=== PATIENT | female | born 1955 | race Caucasian/White ===

== ENCOUNTER 2019-01-18 06:55 | Day surgery (SDC) | payer BC, OTHER ==
[~2019-01-18 06:55] MED LIST: Lactated Ringers 1,000 ML IV SCH; Lidocaine 1%/Sod Bicarbonate in NS 8.4% 1 ML Syringe IDERM PRN; Scopolamine 1.5 MG Transdermal Patch TRDERM PRN; Sodium Chloride 0.9% 10 ML Syringe FLUSH PRN
[2019-01-18] MEDS ORDERED: Lidocaine 1% 2 ML ONE ×2 (07:09)
[2019-01-18] MEDS ORDERED: Propofol 200 MG/20 ML SDV ONE ×3 (07:09→08:32)
--- NOTE | 2019-01-18 07:16 | PCM.HP ---
H&P History of Present Illness - General Date of Service: 01/18/19 Admit Problem/Dx: Family hx of colon cancer, colonoscopy Source of Information: Patient - History of Present Illness Initial Comments - Free Text/Narative: The patient is [id number] by Dr. Lake for colonoscopy due to family hx of colon cancer The patient presents today for the above noted concern. She denies any major changes to medical history since last visit. She was initially scheduled for EGD/colonoscopy, due to reflux and inability to wean PPI. She DOES NOT want the EGD today. She did complete colonoscopy prep. Stools were clear. Did note some bleeding/blood in stool with diarrhea last night induced by prep felt to be due to hemorrhoids. The patientrareconstipation. Reports normally has some diarrhea. NO: melena. Has notedblood on tissue paper/hemorrhoids. [id number] daily. Bowel movements easy to pass. No unintentional weight loss. No change in stool caliber. No abdominal pain today. Denies history of ulcerative colitis or Crohn 's disease. Denies any family history of inflammatory bowel disease. Family hx of colon cancer. Last colonoscopy was 2013, hyperplastic polyps were removed Hasreflux, heartburn is controlled with Nexium. Has been on for years. Cannot wean. Drinks up to 6 cups of coffee at times. Rare NSAIDs. NO: nausea , vomiting, or dysphagia.. She reports she had aspiration in the past and was found to have reflux. CT scan done in 2010 showed a small hiatal hernia.Last EGD wasnever. 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 She can be hypersensitive to her skin surface being touched and can have wide spead pain. 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 She does feel the Cymbalta helps this. - Related Data Allergies/Adverse Reactions: Allergies Allergy/AdvReac Type Severity Reaction Status Date / Time amoxicillin trihydrate Allergy Hives Verified 01/17/19 13:36 [From Augmentin] potassium clavulanate Allergy Hives Verified 01/17/19 13:36 [From Augmentin] Home Medications: Home Meds Calcium Carbonate [Calcium] 600 mg PO DAILY 01/17/19 [History] Cholecalciferol (Vitamin D3) [Vitamin D3] 2,000 unit PO DAILY 01/17/19 [History] DULoxetine [Cymbalta] 30 mg PO DAILY 01/17/19 [History] Esomeprazole Magnesium [Nexium] 40 mg PO DAILY 01/17/19 [History] Ibuprofen 600 mg PO ASDIRECTED PRN 01/17/19 [History] Losartan [Cozaar] 50 mg PO DAILY 01/17/19 [History] Rosuvastatin [Crestor] 10 mg PO DAILY 01/17/19 [History] Past Medical History HEENT History: Reports: None Cardiovascular History: Reports: High Cholesterol, Hypertension, Other (See Below) Other Cardiovascular History: Varicose veins Respiratory History: Reports: None Gastrointestinal History: Reports: GERD Genitourinary History: Reports: None HOG TENDER History: Reports: None Musculoskeletal History: Reports: Arthritis Neurological History: Reports: None Psychiatric History: Reports: Depression Other Psychiatric History: insomnia Endocrine/Metabolic History: Reports: None Hematologic History: Reports: Blood Transfusion(s) Immunologic History: Reports: None Oncologic (Cancer) History: Reports: None Other Dermatologic History: Dercum disease - Past Surgical History Head Surgeries/Procedures: Reports: None HEENT Surgical History: Reports: Oral Surgery Cardiovascular Surgical History: Reports: None Respiratory Surgical History: Reports: None GI Surgical History: Reports: Cholecystectomy, Colonoscopy Female Surgical History: Reports: Breast Biopsy, Other (See Below) Other Female Surgeries/Procedures: Right breast lumpectomy with excision Endocrine Surgical History: Reports: None Neurological Surgical History: Reports: None Musculoskeletal Surgical History: Reports: Other (See Below) Other Musculoskeletal Surgeries/Procedures:: Right knee surgery, right bunionectomy Oncologic Surgical History: Reports: None Dermatological Surgical History: Reports: None Social & Family History - Tobacco Use Smoking Status *Q: Never Smoker Second Hand Smoke Exposure: No - Caffeine Use Caffeine Use: Reports: Coffee, Tea - Recreational Drug Use Recreational Drug Use: No Drug Use in Last 12 Months: No H&P Review of Systems - Review of Systems: Review Of Systems: See Below Free Text/Narrative: Denies any exertional chest pain or shortness of breath. No history of any easy bleeding or bruising. No personal or familial history of clotting or bleeding disorders. No history of anesthetic complications, except PONV. No history of familial anesthetic complications. Denies presenceof chest pain. Distant history of chest pain,wasfound to be acid reflux. NO: palpitations. Intermittentlower extremity edema. NO: dyspnea at rest, orthopnea, obstructive sleep apnea. She reports Snoring. NO: witnessed apnea. NO: chronic cough, upper respiratory symptoms in the last two weeks. No history of blood thinner use. No history of anemia. Hx ofjoint replacement. NO :heart valve replacement. No history of seizure or stroke. Hx of heart murmur at , reports most can no longer hear this. No fever, chills, or nightsweats. Distantcardiology evaluation or pulmonology evaluation. EK w EKG Severity w - OTHERWISE NORMAL ECG - w EKG Impression w Sinus rhythm Abnormal R-wave progression, early transition Echo:denies Stress test:distant reportedly negative All other systems reviewed and were negative except as per history of present illness. General: Reports: No Symptoms HEENT: Reports: No Symptoms Pulmonary: Reports: No Symptoms Cardiovascular: Reports: No Symptoms Gastrointestinal: Reports: No Symptoms Genitourinary: Reports: No Symptoms Musculoskeletal: Reports: No Symptoms Skin: Reports: Other (multiple tender lipomas to abdomen due to Dercum's disease ) Psychiatric: Reports: No Symptoms Neurological: Reports: No Symptoms Hematologic/Lymphatic: Reports: No Symptoms Immunologic: Reports: No Symptoms Exam - Exam Exam: See Below - Exam General: Alert, Oriented, Cooperative HEENT: Conjunctiva Clear Lungs: Clear to Auscultation, Normal Respiratory Effort Cardiovascular: Regular Rate, Regular Rhythm, Normal S1, Normal S2 GI/Abdominal Exam: Normal Bowel Sounds, Soft, Non-Tender, Mass (multiple tender lipomas to abdomen ) Extremities: Normal Inspection, Normal Range of Motion, Non-Tender, No Pedal Edema, Normal Capillary Refill, Other (multiple spider varicosities, reticular and varicose veins) Skin: Warm, Dry, Intact Neurological: Normal Speech Neuro Extensive - Mental Status: Alert, Oriented x3, Normal Mood/Affect, Normal Cognition, Memory Intact Psychiatric: Alert, Normal Affect, Normal Mood - Problem List (1) Family history of colon cancer requiring screening colonoscopy SNOMED Code(s): 557758735 ICD Code: Z80.0 - FAMILY HISTORY OF MALIGNANT NEOPLASM OF DIGESTIVE ORGANS Status: Acute Current Visit: Yes Problem List Initiated/Reviewed/Updated: Yes Orders Last 24hrs: Active Orders 24 hr Category Date Time Status Peripheral IV Care [RC] . DIRECTED Care 01/18/19 00:01 Active Verify Patient Consent Obtain [RC] ASDIRECTED Care 01/18/19 00:01 Active Lactated Ringers [Ringers, Lactated] 1,000 ml Med 01/18/19 00:01 Active IV ASDIRECTED Lidocaine 1%/Sod Bicarbonate [Buffered Lidocaine 1% in Med 01/18/19 00:01 Active NS 8.4%] 0.25 ml IDERM ONETIME PRN Scopolamine [Transderm-Scop] Med 01/18/19 00:01 Active 1.5 mg TRDERM ONETIME PRN Sodium Chloride 0.9% [Saline Flush] Med 01/18/19 00:01 Active 10 ml FLUSH ASDIRECTED PRN Medication Administration Instruction [OM.PC] Routine Oth 01/18/19 00:01 Ordered Peripheral IV Insertion Adult [OM.PC] Routine Oth 01/18/19 00:01 Ordered Medication Orders Lactated Ringer's (Ringers, Lactated) 1,000 mls @ 125 mls/hr IV ASDIRECTED ANIKET Stop: 01/18/19 23:00 Lidocaine/Sodium Bicarbonate (Buffered Lidocaine 1% In Ns 8.4%) 0.25 ml IDERM ONETIME PRN PRN Reason: Prior to IV Start Stop: 01/18/19 18:00 Scopolamine (Transderm-Scop) 1.5 mg TRDERM ONETIME PRN PRN Reason: PONV Stop: 01/18/19 16:00 Sodium Chloride (Saline Flush) 10 ml FLUSH ASDIRECTED PRN PRN Reason: Keep Vein Open Stop: 01/18/19 18:00 Assessment/Plan Comment:: 63yr female with history of colon cancer in first degree relative, need for colonoscopy Patient can perform 4 METS of physical activity without chest pain or shortness of breath. PLAN: We discussed performing colonoscopy. We discussed the procedure and post operative expectations. This procedure will be done at [facility] to BMI of 41.8 Patient has chronic intermittent pain to abdominal lipomas from Dercum's disease. Consider CT scan to further evaluate. If no abnormalities on colonoscopy patient does agree to continue to follow with PCP. Patient has painful spider varicosities/varicose veins, wears compression stockings. Discussed can consider venous reflux study. She will consider and if pain worsens will proceed with further imaging. I personally reviewed the patient's previous medical records and laboratory studies. Patient verbalized understanding and agreed with care plan. CHETNA [facility] General Surgery Department
--- NOTE | 2019-01-18 07:41 | PCM.PREANE ---
Preanesthetic Assessment - Anesthesia/Transfusion/Family Hx Anesthesia History: Prior Anesthesia Reaction Type of Anesthesia Reaction: Excessive Nausea/Vomiting Family History of Anesthesia Reaction: No Transfusion History: Prior Transfusion Without Reaction - Review of Systems General: No Symptoms Pulmonary: No Symptoms Cardiovascular: No Symptoms Gastrointestinal: No Symptoms Neurological: No Symptoms Other: Reports: None - Physical Assessment NPO Status Date: 01/17/19 NPO Status Time: 22:00 Pulse: 89 O2 Sat by Pulse Oximetry: 97 Respiratory Rate: 16 Blood Pressure: 146/97 Temperature: 98.2 C ASA Class: 2 Mental Status: Alert & Oriented x3 Airway Class: Mallampati = 2 Dentition: Reports: Normal Dentition Thyro-Mental Finger Breadths: 3 Mouth Opening Finger Breadths: 3 ROM/Head Extension: Full Lungs: Clear to Auscultation, Normal Respiratory Effort Cardiovascular: Regular Rate, Regular Rhythm - Allergies Allergies/Adverse Reactions: Allergies Allergy/AdvReac Type Severity Reaction Status Date / Time amoxicillin trihydrate Allergy Hives Verified 01/17/19 13:36 [From Augmentin] potassium clavulanate Allergy Hives Verified 01/17/19 13:36 [From Augmentin] - Acknowledgements Anesthesia Type Planned: MAC Pt an Appropriate Candidate for the Planned Anesthesia: Yes Alternatives and Risks of Anesthesia Discussed w Pt/Guardian: Yes Pt/Guardian Understands and Agrees with Anesthesia Plan: Yes PreAnesthesia Questionnaire HEENT History: Reports: None Cardiovascular History: Reports: High Cholesterol, Hypertension, Other (See Below) Other Cardiovascular History: Varicose veins Respiratory History: Reports: None, SOB (with exertion, 2 flights of steps) Gastrointestinal History: Reports: GERD Genitourinary History: Reports: None SENIOR BUSINESS CONSULTANT History: Reports: None Musculoskeletal History: Reports: Arthritis Neurological History: Reports: None Psychiatric History: Reports: Depression Other Psychiatric History: insomnia Endocrine/Metabolic History: Reports: None Hematologic History: Reports: Blood Transfusion(s) (as baby) Immunologic History: Reports: None Oncologic (Cancer) History: Reports: None Other Dermatologic History: Dercum disease - Past Surgical History Head Surgeries/Procedures: Reports: None HEENT Surgical History: Reports: Oral Surgery Cardiovascular Surgical History: Reports: None Respiratory Surgical History: Reports: None GI Surgical History: Reports: Cholecystectomy, Colonoscopy Female Surgical History: Reports: Breast Biopsy, Other (See Below) Other Female Surgeries/Procedures: Right breast lumpectomy with excision Endocrine Surgical History: Reports: None Neurological Surgical History: Reports: None Musculoskeletal Surgical History: Reports: Other (See Below) Other Musculoskeletal Surgeries/Procedures:: Right knee surgery, right bunionectomy Oncologic Surgical History: Reports: None, Biopsy of Breast, Lumpectomy ((R)) Dermatological Surgical History: Reports: None - SUBSTANCE USE Smoking Status *Q: Never Smoker Second Hand Smoke Exposure: No Recreational Drug Use History: No - HOME MEDS Home Medications: Home Meds Calcium Carbonate [Calcium] 600 mg PO DAILY 01/17/19 [History] Cholecalciferol (Vitamin D3) [Vitamin D3] 2,000 unit PO DAILY 01/17/19 [History] DULoxetine [Cymbalta] 30 mg PO DAILY 01/17/19 [History] Esomeprazole Magnesium [Nexium] 40 mg PO DAILY 01/17/19 [History] Ibuprofen 600 mg PO ASDIRECTED PRN 01/17/19 [History] Losartan [Cozaar] 50 mg PO DAILY 01/17/19 [History] Rosuvastatin [Crestor] 10 mg PO DAILY 01/17/19 [History] - CURRENT (IN HOUSE) MEDS Current Meds: Current Medications Lactated Ringer's (Ringers, Lactated) 1,000 mls @ 125 mls/hr IV ASDIRECTED ANIKET Stop: 01/18/19 23:00 Lidocaine/Sodium Bicarbonate (Buffered Lidocaine 1% In Ns 8.4%) 0.25 ml IDERM ONETIME PRN PRN Reason: Prior to IV Start Stop: 01/18/19 18:00 Scopolamine (Transderm-Scop) 1.5 mg TRDERM ONETIME PRN PRN Reason: PONV Stop: 01/18/19 16:00 Sodium Chloride (Saline Flush) 10 ml FLUSH ASDIRECTED PRN PRN Reason: Keep Vein Open Stop: 01/18/19 18:00 Discontinued Medications Lidocaine HCl (Xylocaine-Mpf 1%) Confirm Administered Dose 2 mls @ as directed .ROUTE .STK-MED ONE Stop: 01/18/19 07:10 Lidocaine HCl (Xylocaine-Mpf 1%) Confirm Administered Dose 2 mls @ as directed .ROUTE .STK-MED ONE Stop: 01/18/19 07:10 Propofol (Diprivan 20 Ml) Confirm Administered Dose 200 mg .ROUTE .[employer]-MED ONE Stop: 01/18/19 07:10
[2019-01-18] MEDS ORDERED: Ondansetron 4 MG/2 ML SDV ONE (07:49)
--- NOTE | 2019-01-18 08:59 | PCM.OPNOTE ---
- General Post-Op/Procedure Note Date of Surgery/Procedure: 01/18/19 Operative Procedure(s): colonoscopy Findings: rectal polyp Pre Op Diagnosis: Family history of Colon cancer in 1st degree relative Post-Op Diagnosis: same Anesthesia Technique: MAC Primary Surgeon: Marisol Patel Anesthesia Provider: Johanna Mas Pathology: rectal polyp Fluid Replacement, Intraop: 900 Output, Urine Amount: 0 EBL in mLs: 0 Complications: none apparent Condition: Good
--- NOTE | 2019-01-18 09:02 | PCM.PRNOTE ---
- Free Text/Narrative Note: Operative Report Date of Surgery/Procedure: January 18, 2019 Operative Procedure: Colonoscopy to cecum Pre Op Diagnosis: Colon cancer in 1st degree relative Post-Op Diagnosis: Same Surgeon: Marisol Patel MD Anesthesia Technique: MAC Anesthesia Provider: Johanna Mas CRNA IV Fluid Replacement, Intraop: 900cc Output, Urine Amount: 0cc EBL : 0cc Findings: Rectal polyp and diverticulosis Specimens: . Rectal polyp Indication: The patient is a []year-old [] who presented to the outpatient clinic requesting colorectal cancer screening. The patient has a history of [] We discussed the procedure of a screening colonoscopy including the polypectomy and biopsy. Risks of bleeding and perforation were discussed, the patient understood and wished to proceed. Written and consent was obtained Description of the procedure: The patient was brought to the endoscopy suite and placed in the left lateral decubitus position. Appropriate monitors were applied. The patient was given MAC anesthesia. An anorectal examination was performed, revealing no external abnormality. The scope was placed into the rectum and advanced to cecum with mild difficulty requiring abdominal pressure. The patients cecum was entered, and the ileocecal valve and appendiceal orifice were identified and normal. At this point, the scope was withdrawn, paying careful attention to the mucosa. The patient had good bowel prep, allowing for visualization of 85-90% of the mucosa. Scattered small and large mouthed diverticulum were noted in the transverse, descending and sigmoid colon. In the rectum, the scope was retroflexed and no abnormalities were noted, except for some hemorrhoidal tissue. The scope was placed back in the lumen and the excess air was aspirated. The patient tolerated the procedure well. Complications: none apparent Condition: Good, transported to PACU in stable condition Marisol Patel MD General Surgery
--- NOTE | 2019-01-18 09:04 | PCM48HPAN ---
Post Anesthesia Note - EVALUATION WITHIN 48HRS OF ANESTHETIC Vital Signs in Normal Range: Yes Patient Participated in Evaluation: Yes Respiratory Function Stable: Yes Airway Patent: Yes Cardiovascular Function Stable: Yes Hydration Status Stable: Yes Pain Control Satisfactory: Yes Nausea and Vomiting Control Satisfactory: Yes Mental Status Recovered: Yes Pulse Rate: 73 SaO2: 98 Resp Rate: 16 Blood Pressure: 98/71 Pulse Rate: 73
[2019-01-18 09:32] VITALS: BP 125/78
== END 2019-01-18 09:50 | disposition home or self-care (01) ==
LOC: JD.SDS 06:55
PROVIDERS: ATTEND Surgery
DX: K63.5 Polyp of colon (principal); K57.30 Diverticulosis of large intestine without perforation or abscess without bleeding; K21.9 Gastro-esophageal reflux disease without esophagitis; Z80.0 Family history of malignant neoplasm of digestive organs; E78.00 Pure hypercholesterolemia, unspecified; I10 Essential (primary) hypertension; D17.1 Benign lipomatous neoplasm of skin and subcutaneous tissue of trunk; G89.29 Other chronic pain; I83.90 Asymptomatic varicose veins of unspecified lower extremity; M19.90 Unspecified osteoarthritis, unspecified site; F32.9 Major depressive disorder, single episode, unspecified; R01.1 Cardiac murmur, unspecified; G47.00 Insomnia, unspecified; Z88.0 Allergy status to penicillin; Z88.1 Allergy status to other antibiotic agents; Z79.899 Other long term (current) drug therapy
CPT/HCPCS: 00812; J2001; J2405; J2704; J7120

== ENCOUNTER 2023-05-22 08:42 | Day surgery (SDC) | payer MEDICARE, BC ==
[~2023-05-22 08:42] MED LIST changes: +EPINEPHrine 1 MG/ML 30 ML MDV IRR SCH; +EPINEPHrine 1 MG/ML SDV ONE; +Lidocaine 1% 5 ML VIAL ONE; -Lidocaine 1%/Sod Bicarbonate in NS 8.4% 1 ML Syringe IDERM PRN; +Midazolam 1 MG/ML 2 ML SDV ONE; +Ondansetron 4 MG/2 ML SDV ONE; +Propofol 200 MG/20 ML SDV ONE; +Rocuronium 50 MG/5 ML Vial ONE; +Ropivacaine 0.5% 5 MG/ML 30 ML SDV ONE; -Scopolamine 1.5 MG Transdermal Patch TRDERM PRN; +Sodium Chloride 0.9% 10 ML Syringe FLUSH SCH; +fentaNYL 250 MCG/5 ML SDV ONE
[2023-05-22] MEDS ORDERED: Scopolamine 1.5 MG Transdermal Patch TOP SCH (09:29)
[2023-05-22] MEDS ORDERED: Ondansetron 4 MG/2 ML SDV IVPUSH PRN (09:30)
[2023-05-22] MEDS ORDERED: HYDROmorphone 0.5 MG/0.5 ML Syringe IVPUSH PRN (09:30)
[2023-05-22] MEDS ORDERED: fentaNYL 100 MCG/2 ML SDV IVPUSH PRN (09:30)
[2023-05-22] MEDS ORDERED: ceFAZolin 2 GM Vial ONE (10:28)
[2023-05-22] MEDS ORDERED: Dexmedetomidine 200 MCG/2 ML SDV ONE (11:30)
[2023-05-22] MEDS ORDERED: Dexamethasone 4 MG/ML 5 ML MDV ONE (11:35)
[2023-05-22] MEDS ORDERED: Propofol 200 MG/20 ML SDV ONE (11:36)
[2023-05-22] MEDS ORDERED: Ondansetron 4 MG/2 ML SDV ONE (11:36)
[2023-05-22] MEDS ORDERED: Midazolam 1 MG/ML 2 ML SDV ONE (11:56)
[2023-05-22] MEDS ORDERED: Lactated Ringers 1,000 ML ONE (12:25)
[2023-05-22] MEDS ORDERED: Ketorolac 15 MG/ML SDV ONE (12:30)
[2023-05-22] MEDS ORDERED: Neostigmine Methylsulfate 10 MG/10 ML MDV ONE (12:30)
[2023-05-22] MEDS ORDERED: fentaNYL 100 MCG/2 ML SDV ONE (15:26)
[2023-05-22 16:10] VITALS: BP 128/72; PULSE 72
== END 2023-05-22 15:30 | disposition home or self-care (01) ==
LOC: JD.SDS 08:42
PROVIDERS: ATTEND Orthopaedic Surgery
DX: M75.102 Unspecified rotator cuff tear or rupture of left shoulder, not specified as traumatic (principal); M75.22 Bicipital tendinitis, left shoulder; M94.212 Chondromalacia, left shoulder; M25.812 Other specified joint disorders, left shoulder; M25.512 Pain in left shoulder; F32.A Depression, unspecified; G47.00 Insomnia, unspecified; I10 Essential (primary) hypertension; F41.9 Anxiety disorder, unspecified; E78.00 Pure hypercholesterolemia, unspecified; E66.9 Obesity, unspecified; Z79.899 Other long term (current) drug therapy; Z88.0 Allergy status to penicillin; Z98.890 Other specified postprocedural states; Z68.42 Body mass index [BMI] 45.0-49.9, adult; Z88.1 Allergy status to other antibiotic agents
CPT/HCPCS: 29823; 29828; 64415; A9270; J0171; J0690; J1100; J1885; J2250; J2405; J2704; J2710; J2795; J3010; J7120; 01630; J3490

== ENCOUNTER 2023-10-03 13:23 | Emergency (ER) | payer BC, MEDICARE ==
[2023-10-03 13:31] VITALS: PULSE 67
[2023-10-03] MEDS ORDERED: Dextrose 5%-0.9% NaCl 1,000 ML IV SCH (13:45)
[2023-10-03] MEDS ORDERED: Lidocaine 1% PF 2 ML SDV INJECT ONE (13:47)
[2023-10-03 15:23] VITALS: BP 144/93
== END 2023-10-03 15:23 | disposition home or self-care (01) ==
LOC: JD.ED 13:23
DX: S01.83XA Puncture wound without foreign body of other part of head, initial encounter (principal); I95.1 Orthostatic hypotension; E78.00 Pure hypercholesterolemia, unspecified; E66.9 Obesity, unspecified; Z88.0 Allergy status to penicillin; Z88.8 Allergy status to other drugs, medicaments and biological substances; Z79.899 Other long term (current) drug therapy; Z68.41 Body mass index [BMI] 40.0-44.9, adult; W19.XXXA Unspecified fall, initial encounter
CPT/HCPCS: 12011; 70450; 96360; 99284; J7042; 90471; 99283; J3490

== ENCOUNTER 2025-04-09 08:08 | Day surgery (SDC) | payer MEDICARE ==
[~2025-04-09 08:08] MED LIST changes: -EPINEPHrine 1 MG/ML 30 ML MDV IRR SCH; -EPINEPHrine 1 MG/ML SDV ONE; -Lactated Ringers 1,000 ML IV SCH; -Lidocaine 1% 5 ML VIAL ONE; -Midazolam 1 MG/ML 2 ML SDV ONE; -Ondansetron 4 MG/2 ML SDV ONE; -Propofol 200 MG/20 ML SDV ONE; -Rocuronium 50 MG/5 ML Vial ONE; -Ropivacaine 0.5% 5 MG/ML 30 ML SDV ONE; -fentaNYL 250 MCG/5 ML SDV ONE
[2025-04-09] MEDS ORDERED: Propofol 200 MG/20 ML SDV ONE (08:33)
[2025-04-09] MEDS: Lactated Ringers 1,000 ML IV SCH (08:35)
[2025-04-09] MEDS ORDERED: Ondansetron 4 MG/2 ML SDV IVPUSH PRN (08:41)
[2025-04-09] MEDS ORDERED: fentaNYL 100 MCG/2 ML SDV IVPUSH PRN (08:41)
[2025-04-09] MEDS ORDERED: Ondansetron 4 MG/2 ML SDV ONE (08:59)
[2025-04-09] MEDS ORDERED: Glycopyrrolate 0.2 MG/ML 2 ML SDV ONE (09:11)
[2025-04-09 10:29] VITALS: BP 123/50; PULSE 86
== END 2025-04-09 10:41 | disposition home or self-care (01) ==
LOC: JD.SDS 08:08
PROVIDERS: ATTEND Surgery
DX: Z12.11 Encounter for screening for malignant neoplasm of colon (principal); D12.3 Benign neoplasm of transverse colon; K57.30 Diverticulosis of large intestine without perforation or abscess without bleeding; K64.8 Other hemorrhoids; I10 Essential (primary) hypertension; E78.00 Pure hypercholesterolemia, unspecified; Z80.0 Family history of malignant neoplasm of digestive organs; Z88.8 Allergy status to other drugs, medicaments and biological substances; Z79.899 Other long term (current) drug therapy
CPT/HCPCS: 45380; J1596; J2003; J2405; J2704; J7120; 00811; 88305